=== PATIENT | female | born 1930 | race Caucasian/White ===

== ENCOUNTER 2016-11-08 23:00 | Day surgery (SDC) | payer MEDICARE, OTHER ==
--- NOTE | ~2016-11-08 | OP ---
Record Of Operation [facility] [address] [place]. [address] NAME: MALLORIE SHIELDS : 34 STATUS : ADM Funmilayo PAT#: [id number] AGE: 85 ADM/REG DATE : 11/08/16 MR#: [id number] REPORT SERV DATE: 11/09/16 DICTATED BY: DON SUAREZ DATE: 11/09/16 REPORT STATUS : Draft TRANSCRIBED BY: MODL DATE: 11/09/16 DATE OF PROCEDURE: 11/09/2016 PREOPERATIVE DIAGNOSIS: Dislocated right total hip arthroplasty. POSTOPERATIVE DIAGNOSIS: Dislocated right total hip arthroplasty. PROCEDURE PERFORMED: Closed reduction right total hip arthroplasty. SURGEON: Don Suarez M.D. POSSUM TRAPPER: Marvin Lr. ANESTHESIA: General. PROCEDURE IN DETAIL: The patient was clearly identified, and after obtaining informed consent, she was brought to the operating room at [facility] where she was induced under general anesthesia with careful stabilization of the pelvis, adduction, distraction and rotation. The total hip is palpably unlocked from behind the acetabular component and felt to nicely sublux into position and reduced uneventfully. Extending the leg, there was good motion of the hip. There was some limited internal rotation and abduction to exam and this one is same dislocation and abduction brace was applied. The patient was allowed to awaken and was transferred to the recovery room in stable condition having tolerated the procedure well. ESTIMATED BLOOD LOSS: None. FLUIDS: 200. TOURNIQUET TIME: None. PATHOLOGY: None. MICROBIOLOGY: None. COMPLICATIONS: None. SPONGE AND NEEDLE COUNT: Not applicable. CHARMAINE/DB Don Suarez M.D. Record Of Operation [facility] [address] [place]. [address] NAME: MALLORIE SHIELDS Lázaro : 34 STATUS : ADM Funmilayo PAT#: [id number] AGE: 85 ADM/REG DATE : 11/08/16 MR#: [id number] REPORT SERV DATE: 11/09/16 DICTATED BY: DON SUAREZ DATE: 11/09/16 REPORT STATUS : Draft TRANSCRIBED BY: MODL DATE: 11/09/16 / [id number] CC: Don Suarez M.D. Jarred Tran DO
[~2016-11-08 23:00] MED LIST: AMB10 PO; CALTRA600D PO; CELEBREX2 PO; CENTRUM TAB1 TAB PO; COUMADIN4 MG PO; ELIQUIS 5 MG TAB5 MG PO; FORTEO SC; HYZAAR 100/25 T1 TAB PO; L20 PO; LOP25 PO; LORT7 PO; LORTAB10 PO; MELA3 PO; TOPXL25 PO; VITAMIN D1000 UNI1 PO
[2016-11-09 01:24] LABS: BASOPHILS 0.3 %; BASOPHILS ABSOLUTE 0.02 10/3/uL (0.0-0.16); EOSINOPHILS 1.8 %; EOSINOPHILS ABSOLUTE 0.13 10/3/uL (0.0-0.53); ER CBC TAT 0 Hrs 09 Mins; HEMATOCRIT 37.4 % (36.0-48.0); HEMOGLOBIN 13.4 g/dL (12.0-16.0); IMMATURE GRANULOCYTES 0.4 %; IMMATURE GRANULOCYTES ABSOLUTE 0.03 10/3/uL (0.0-0.11); LYMPHOCYTES ABSOLUTE 1.34 10/3/uL (0.67-4.30); MANUAL DIFF NO %; MEAN CORPUS HGB CONC 35.8 g/dL (32.0-36.0); MEAN CORPUSCULAR HEMOGLOB 32.6 pg (26.0-34.0); MEAN PLATELET VOLUME 9.4 fL (9.2-13.0); MONOCYTES 9.2 %; MONOCYTES ABSOLUTE 0.65 10/3/uL (0.21-1.20); NEUTROPHILS 69.3 %; PLATELET COUNT 218 10/3/uL (150-400); RBC DISTRIBUTION WIDTH 12.3 % (12.0-16.0); RED CELL COUNT 4.11 10/6/uL (4.0-5.6); WHITE BLOOD CELLS 7.1 10/3/uL (4.5-10.5)
[2016-11-09 01:28] LABS: INTERNATIONAL NORMAL RATI 1.5 UNITS (-)
[2016-11-09 01:29] LABS: CALCIUM, SERUM 9.4 MG/DL (8.5-10.4); CHLORIDE, SERUM 93 MMOL/L (96-112); CO2 (CARBON DIOXIDE) 28 MMOL/L (24-34); CREATININE 0.83 MG/DL (0.55-1.02); GFR AFRICAN AMERICAN 76 ML/MIN (>=60); GFR NON AFRICAN AMERICAN 65 ML/MIN (>=60); GLUCOSE, SERUM 107 MG/DL (60-99); POTASSIUM, SERUM 3.5 MMOL/L (3.5-5.3); SODIUM, SERUM 134 MMOL/L (135-148)
[2016-11-09 01:30] LABS: BUN (BLOOD UREA NITROGEN) 19 MG/DL (6-23)
[2016-11-09 01:35] LABS: PROTIME (NOT ORD) 17.6 SEC (12.0-14.5)
[2016-11-09] MEDS ORDERED: LOP25 PO (01:49)
[2016-11-09] MEDS ORDERED: LOSARTAN/HCTZ (01:51)
[2016-11-09] MEDS ORDERED: CELEBREX2 PO (01:54)
[2016-11-09] MEDS ORDERED: ELIQUIS 5 MG TAB5 MG PO (01:54)
[2016-11-09] MEDS ORDERED: CALTRA600D (01:55)
[2016-11-09] MEDS ORDERED: NORCO1 TA2 PO (01:55)
[2016-11-09] MEDS ORDERED: AMB10 PO (01:55)
== END 2016-11-09 09:33 | disposition home or self-care (01) ==
LOC: ER 23:00 → SDC 23:59
PROVIDERS: Hospitalist; Orthopaedic Surgery
PROC: 0SS9XZZ Reposition Right Hip Joint, External Approach (ICD-10-PCS; principal; 2016-11-09 05:57)
DX: T84.020A Dislocation of internal right hip prosthesis, initial encounter (principal); I48.91 Unspecified atrial fibrillation; I10 Essential (primary) hypertension
CPT/HCPCS: 36415; 71010; 72170; 76000; 80048; 85025; 85610; 85730; 86850; 86900; 86901; 96374; 99285; J0690; J1170